=== PATIENT | female | born 1995 | race Caucasian/White ===

== ENCOUNTER 2016-04-24 21:34 | Emergency (ER) | payer BC, OTHER ==
[2016-04-24 23:19] LABS: BASO # 0.1 (0.0-0.2); BASO % 0.5 % (0.0-2.0); EOS # 0.3 (0.0-0.7); EOS % 2.9 % (0-4.0); GRAN # 5.2 (1.4-6.5); GRAN % 55.1 % (42.2-75.2); HEMOGLOBIN 10.9 g/dl (12.0-15.0); LYMPH # 3.5 (1.2-3.4); LYMPH % 36.8 % (20.0-51.0); MEAN CELL VOLUME 89 fl (80.0-95.0); MEAN CORPUSCULAR HEMOGLOBIN 30 pg (26.0-32.0); MEAN CORPUSCULAR HGB CONC 33 g/dl (33.0-37.0); MEAN PLATELET VOLUME 8.7 fl (7.4-10.4); MONO # 0.4 (0.1-0.6); MONO % 4.5 % (1.7-9.3); PLATELET COUNT 372 K/mm3 (130-400); RED BLOOD COUNT 3.69 M/mm3 (4.10-5.30); REDCELL DISTRIBUTION WIDTH-CV 13.4 % (11.5-14.5); WHITE BLOOD COUNT 9.5 K/mm3 (4.8-10.8)
[2016-04-24 23:30] LABS: ADJUSTED CALCIUM 9.4 mg/dL (8.4-10.2); ALBUMIN 4.3 gm/dL (3.5-5.0); BILIRUBIN,TOTAL 0.8 mg/dL (0.0-1.0); CALCIUM 9.6 mg/dL (8.4-10.2); CREATININE, serum 0.75 mg/dL (0.52-1.25); POTASSIUM 3.6 mmol/L (3.4-5.0); TOTAL PROTEIN 8.3 gm/dL (6.4-8.2)
[2016-04-24 23:36] LABS: PH 6 (5-8); SQUAMOUS EPITHELIAL 0-2 /hpf; URINE APPEARANCE Clear; URINE BACTERIA None Seen /hpf; URINE BILIRUBIN Negative (NEGATIVE); URINE BLOOD Negative (NEGATIVE); URINE COLOR Yellow; URINE GLUCOSE Negative (NEGATIVE); URINE KETONE Negative (NEGATIVE); URINE UROBILINOGEN Negative (NEGATIVE); URINE WBC 0-2 /hpf
[2016-04-24 23:47] LABS: HIV 1/2 Antibodies Non-Reactive; HIV-1p24 Antigen Non-Reactive
[2016-04-25 00:57] LABS: CHLAMYDIA/TRACH by PCR Female NOT DETECTED; NEISSERIA GON by PCR Female NOT DETECTED
[2016-04-25] MEDS ORDERED: MYWAY PO (01:49)
[2016-04-25] MEDS ORDERED: AZITHROMYC1 GM/PACKE PO (01:49)
[2016-04-25] MEDS ORDERED: DOXYCYCLINE HY100 MG PO (01:49)
[2016-04-25] MEDS ORDERED: FLAGYL500 MG PO (01:49)
== END 2016-04-25 01:56 | disposition home or self-care (01) ==
LOC: COL.ER 21:34
PROVIDERS: Emergency Medicine
DX: Z04.41 Encounter for examination and observation following alleged adult rape (principal)

== ENCOUNTER → 2016-04-24 | Outpatient (REF) ==
[~2016-04-24] VITALS: Ht 167.6 cm; Wt 61.4 kg
[~2016-04-24] MED LIST: AZITHROMYC1 GM/PACKE PO; DOXYCYCLINE HY100 MG PO; FLAGYL500 MG PO; MYWAY PO
[2016-04-24 21:26] VITALS: BP 144/85; PULSE 100; TEMP 97.8
== END | disposition home or self-care (01) ==
LOC: COL.ER 21:20 → EDSTATUS 21:33
DX: T76.21XA Adult sexual abuse, suspected, initial encounter (principal)

== ENCOUNTER → 2019-06-28 | Outpatient (CLI) | payer OTHER, BC | LOC: COL.RAD 13:56 | DX: M25.551 Pain in right hip (principal) | CPT/HCPCS: A9585; J3301; Q9967 ==